=== PATIENT | female | born 1930 | race Caucasian/White ===

== ENCOUNTER 2019-03-24 20:42 | Emergency (ER) | payer MEDICARE, OTHER | END 2019-03-25 02:15 | disposition short-term general hospital (02) | LOC: ER FS 20:42 ==

== ENCOUNTER → 2020-11-05 | Outpatient (CLI) | payer MEDICARE, MEDICAID ==
--- NOTE | 2020-11-05 14:10 | Diagnostic Imaging Report ---
PROCEDURE: CT head without contrast. TECHNIQUE: Multiple contiguous axial images were obtained through the brain without the use of intravenous contrast. Auto Exposure Controls were utilized during the CT exam to meet ALARA standards for radiation dose reduction. INDICATION: Fall. COMPARISON: Correlation is made with prior CT head from 03/24/2019. FINDINGS: The ventricles and sulci are prominent consistent with the patient's age. There is periventricular hypodensity noted consistent with senescent change. No sulcal effacement or midline shift is identified. No acute intra-axial or extra-axial hemorrhage is detected. Cisterns are patent. Visualized paranasal sinuses are clear. IMPRESSION: Chronic and senescent changes. No acute intracranial process is detected. Dictated by: Dictated on workstation # [id number]
== END ==
LOC: RAD FS 13:08
PROVIDERS: ATTEND Family Medicine
DX: B02.9 Zoster without complications (principal); G31.9 Degenerative disease of nervous system, unspecified; W19.XXXA Unspecified fall, initial encounter
CPT/HCPCS: 70450

== ENCOUNTER 2022-09-12 09:56 | Emergency (ER) | payer MEDICARE, MEDICAID ==
--- NOTE | 2022-09-12 10:08 | ED General ---
General Chief Complaint: Respiratory Problems Stated Complaint: SOB; FLU A+ History of Present Illness Date Seen by Provider: Sep 12, 2022 Time Seen by Provider: 10:08 Initial Comments 89-year-old female with PMH of HTN/HLD/anxiety/possible A. fib, is here with complaints of influenza A positive with symptoms since Thursday evening, and becoming dyspneic with a productive cough, fatigue, and wheezing at home. Patient does not have any history of asthma or COPD. Denies abdominal pain, diarrhea, constipation, chest pain, palpitations. Patient is breathless after speaking a few sentences. Vitals in the ER are stable. Allergies and Home Medications Allergies Coded Allergies: shrimp (Verified Allergy, Unknown, 09/12/22) Uncoded Allergies: IVP DYE (Allergy, Unknown, 09/12/22) Patient Home Medication List Home Medication List Reviewed: Yes Review of Systems Review of Systems Constitutional: fever, malaise EENTM: nose congestion Respiratory: cough, dyspnea on exertion, wheezing Cardiovascular: no symptoms reported Gastrointestinal: no symptoms reported Genitourinary: no symptoms reported Musculoskeletal: no symptoms reported Skin: no symptoms reported Psychiatric/Neurological: No Symptoms Reported Hematologic/Lymphatic: No Symptoms Reported Immunological/Allergic: no symptoms reported Past Opbdvwm-Usvfwk-Qogfvo Hx Seasonal Allergies Seasonal Allergies: No Past Medical History Surgeries: No Respiratory: No Cardiac: No Neurological: No Genitourinary: No Gastrointestinal: No Musculoskeletal: No Endocrine: No HEENT: No Cancer: No Psychosocial: No Integumentary: No Blood Disorders: No Adverse Reaction/Blood Tranf: No Physical Exam Vital Signs Vital Signs - First Documented 09/12/22 10:00 Temp 36.8 Pulse 77 Resp 20 B/P (MAP) 174/60 (98) Pulse Ox 94 O2 Delivery Room Air Capillary Refill : Height, Weight, BMI Height: 4'10.00" Weight: 130lbs. oz. 58.657513kw; BMI Method:Stated General Appearance: Mild Distress HEENT: PERRL/EOMI, Pharynx Normal Neck: Full Range of Motion, Non Tender Respiratory: Chest Non Tender, No Accessory Muscle Use, Rhonci, Wheezing Cardiovascular: Regular Rate, Rhythm, No Edema Gastrointestinal: Normal Bowel Sounds, Non Tender, Soft Back: No CVA Tenderness Extremity: Normal Range of Motion Neurologic/Psychiatric: Alert, Oriented x3, No Motor/Sensory Deficits Focused Exam Lactate Level 12/2/22 10:58: Lactic Acid Level 1.46 Lactic Acid Level Laboratory Tests Test 09/12/22 10:58 Lactic Acid Level 1.46 MMOL/L (0.50-2.00) Progress/Results/Core Measures Suspected Sepsis SIRS Temperature: Pulse: Respiratory Rate: Laboratory Tests 09/12/22 10:40: White Blood Count 10.3 Blood Pressure / Mean: 09/12/22 10:58: Lactic Acid Level 1.46 Laboratory Tests 09/12/22 10:40: Creatinine 0.76, INR Comment 0.9, Platelet Count 267, Total Bilirubin 0.2 Results/Orders Lab Results Laboratory Tests Test 09/12/22 10:40 09/12/22 10:58 09/12/22 12:15 09/12/22 13:50 Range/Units White Blood Count 10.3 4.3-11.0 10^3/uL Red Blood Count 4.29 3.80-5.11 10^6/uL Hemoglobin 12.5 11.5-16.0 g/dL Hematocrit 38 35-52 % Mean Corpuscular Volume 89 80-99 fL Mean Corpuscular Hemoglobin 29 25-34 pg Mean Corpuscular Hemoglobin Concent 33 32-36 g/dL Red Cell Distribution Width 13.7 10.0-14.5 % Platelet Count 267 130-400 10^3/uL Mean Platelet Volume 9.4 9.0-12.2 fL Immature Granulocyte % (Auto) 1 % Neutrophils (%) (Auto) 67 42-75 % Lymphocytes (%) (Auto) 18 12-44 % Monocytes (%) (Auto) 10 0-12 % Eosinophils (%) (Auto) 3 0-10 % Basophils (%) (Auto) 1 0-10 % Neutrophils # (Auto) 6.9 1.8-7.8 10^3/uL Lymphocytes # (Auto) 1.9 1.0-4.0 10^3/uL Monocytes # (Auto) 1.1 H 0.0-1.0 10^3/uL Eosinophils # (Auto) 0.4 H 0.0-0.3 10^3/uL Basophils # (Auto) 0.1 0.0-0.1 10^3/uL Immature Granulocyte # (Auto) 0.1 0.0-0.1 10^3/uL Prothrombin Time 12.7 12.2-14.7 SEC INR Comment 0.9 0.8-1.4 Activated Partial Thromboplast Time 30 24-35 SEC D-Dimer 1.35 H 0.00-0.49 UG/ML Sodium Level 139 135-145 MMOL/L Potassium Level 4.7 3.6-5.0 MMOL/L Chloride Level 106 98-107 MMOL/L Carbon Dioxide Level 25 21-32 MMOL/L Anion Gap 8 5-14 MMOL/L Blood Urea Nitrogen 9 7-18 MG/DL Creatinine 0.76 0.60-1.30 MG/DL Estimat Glomerular Filtration Rate 75 BUN/Creatinine Ratio 12 Glucose Level 115 H 70-105 MG/DL Calcium Level 9.5 8.5-10.1 MG/DL Corrected Calcium 10.1 8.5-10.1 MG/DL Magnesium Level 1.8 1.6-2.4 MG/DL Total Bilirubin 0.2 0.1-1.0 MG/DL Aspartate Amino Transf (AST/SGOT) 37 H 5-34 U/L Alanine Aminotransferase (ALT/SGPT) 27 0-55 U/L Alkaline Phosphatase 82 40-136 U/L Troponin I < 0.30 <0.30 NG/ML Pro-B-Type Natriuretic Peptide 880.0 H <450.0 PG/ML Total Protein 6.5 6.4-8.2 GM/DL Albumin 3.2 3.2-4.5 GM/DL Procalcitonin 0.10 H <0.10 NG/ML Lactic Acid Level 1.46 0.50-2.00 MMOL/L Urine Color YELLOW Urine Clarity CLOUDY Urine pH 7.5 5-9 Urine Specific [place] 1.010 L 1.016-1.022 Urine Protein NEGATIVE NEGATIVE Urine Glucose (UA) NEGATIVE NEGATIVE Urine Ketones NEGATIVE NEGATIVE Urine Nitrite NEGATIVE NEGATIVE Urine Bilirubin NEGATIVE NEGATIVE Urine Urobilinogen 0.2 < = 1.0 MG/DL Urine Leukocyte Esterase 3+ H NEGATIVE Urine RBC (Auto) 1+ H NEGATIVE Urine RBC 5-10 H /HPF Urine WBC 25-50 H /HPF Urine Squamous Epithelial Cells 10-25 H /HPF Urine Crystals NONE /LPF Urine Bacteria LARGE H /HPF Urine Casts NONE /LPF Urine Mucus SMALL H /LPF Urine Culture Indicated YES SARS-CoV-2 RNA (RT-PCR) Not Detected Not Detecte My Orders Orders - TMI ROBERTS MD Albuterol/Ipra Inhalation Soln (Duoneb I (09/12/22 10:45) Svn Small Volume Nebulizer (09/12/22 10:31) Irrigation And Suction (09/12/22 10:31) Cbc With Automated Diff (09/12/22 10:31) Comprehensive Metabolic Panel (09/12/22 10:31) Fibrin Degradation Products (09/12/22 10:31) Lactic Acid Analyzer (09/12/22 10:31) Magnesium (09/12/22 10:31) Protime With Inr (09/12/22 10:31) Partial Thromboplastin Time (09/12/22 10:31) Ua Culture If Indicated (09/12/22 10:31) Probnp Fs (09/12/22 10:31) Troponin I Fs (09/12/22 10:31) Procalcitonin (Pct) (09/12/22 10:31) Chest 1 View Ap/Pa Only (09/12/22 10:31) Ekg Tracing (09/12/22 10:32) Continuous Ekg Monitoring (09/12/22 10:32) Hypertonic Saline 3% Neb (Rt-Hypertonic (09/12/22 10:59) Sodium Chl Inhalation (Rt-Sodium Chl Inh (09/12/22 11:51) Albuterol/Ipra Inhalation Soln (Duoneb I (09/12/22 12:49) Albuterol/Ipra Inhalation Soln (Duoneb I (09/12/22 13:00) Svn Small Volume Nebulizer (09/12/22 12:52) Sodium Chl Inhalation (Rt-Sodium Chl Inh (09/12/22 13:00) Svn Small Volume Nebulizer (09/12/22 12:56) Urine Culture (09/12/22 12:15) Covid 19 Inhouse Test (09/12/22 13:29) Ceftriaxone 1 Gm Pre-Mix (Rocephin 1 Gm (09/12/22 16:11) Medications Given in ED Current Medications Medications Dose Ordered Sig/Emerita Route Start Time Stop Time Status Last Admin Dose Admin Albuterol/ Ipratropium 3 ml ONCE ONCE INH 09/12/22 10:45 09/12/22 10:46 DC 09/12/22 10:54 3 ML Albuterol/ Ipratropium 3 ml ONCE ONCE INH 09/12/22 13:00 09/12/22 13:01 DC 09/12/22 12:55 3 ML Sodium Chloride 3 ml ONCE ONCE IH 09/12/22 13:00 09/12/22 13:01 DC 09/12/22 16:37 3 ML Vital Signs/I&O 09/12/22 10:00 Temp 36.8 Pulse 77 Resp 20 B/P (MAP) 174/60 (98) Pulse Ox 94 O2 Delivery Room Air Capillary Refill : Progress Note : Progress Note 1. INFLUENZA A: acute dyspnea: - CXR: no acute findings - CBC: Normal WBC - CMP overall unremarkable - UA -Hypertonic saline neb and suction in ER -DuoNeb x2 - Will benefit from admission to obs, suctioning. Called multiple hospitals for admission and no one has beds including [facility]. We will transfer patient to [facility] in [facility]. Discussed with Dr. Ratliff, hospitalist 2. ELEVATED D-DIMER: - D-dimer is 1.35 - Pt is allergic to contrast - will need VQ scan at [place] 3. UTI: - UA is positive for leukocyte esterase, RBC, bacteria, WBC -Ceftriaxone 1 g IV stat - NS IVF Diagnostic Imaging Diagonstic Imaging: Xray Plain Films/CT/US/NM/MRI: chest Comments [facility], [facility]. [place], [place] NAME: GREG WILKINSON [facility] REC#: [id number] PT STATUS: REG ER : 1930 PHYSICIAN: TIM ROBERTS MD ADMIT DATE: 09/12/22/ER FS Draft Date of Exam:09/12/22 CHEST 1 VIEW AP/PA ONLY INDICATION: Shortness of breath. Frontal chest obtained at 10:36 a.m. FINDINGS: Heart and mediastinal silhouette are normal in appearance. The lungs are clear. There is no pneumothorax or pleural fluid. IMPRESSION: Negative chest. Dictated on workstation # [id number] Dict: 09/12/22 1053 Trans: 09/12/22 1055 [id number] Interpreted by: CHE LEHMAN MD Electronically signed by: Departure Impression Primary Impression: Influenza A Additional Impressions: Elevated d-dimer UTI (urinary tract infection) Disposition: 02 XFER SHT-TRM HOSP Condition: Improved Admissions Decision to Admit Reason: Admit from ER (General) Transfer Transfer Reason: Exceeds level of care Time Spoke to Accepting Phy: 14:36 Transfer Progress Notes Discussed with Transfer Facility: [facility] Method of Transfer: EMS Departure-Patient Inst. Referrals: SELF,ALVIN SALCEDO (PCP) Primary Care Physician TIM ROBERTS MD Sep 12, 2022 10:08
[2022-09-12 10:43] LABS: BASOPHILS # (AUTO) 0.1 10^3/uL (0.0-0.1); BASOPHILS % (AUTO) 1 % (0-10); EOSINOPHILS # (AUTO) 0.4 10^3/uL (0.0-0.3); EOSINOPHILS % (AUTO) 3 % (0-10); HEMATOCRIT 38 % (35-52); HEMOGLOBIN 12.5 g/dL (11.5-16.0); LYMPHOCYTES # (AUTO) 1.9 10^3/uL (1.0-4.0); LYMPHOCYTES % (AUTO) 18 % (12-44); MEAN CORPUSCULAR HEMOGLOBIN 29 pg (25-34); MEAN CORPUSCULAR HGB CONC 33 g/dL (32-36); MEAN CORPUSCULAR VOLUME 89 fL (80-99); MEAN PLATELET VOLUME 9.4 fL (9.0-12.2); MONOCYTES # (AUTO) 1.1 10^3/uL (0.0-1.0); MONOCYTES % (AUTO) 10 % (0-12); NEUTROPHILS # (AUTO) 6.9 10^3/uL (1.8-7.8); NEUTROPHILS % (AUTO) 67 % (42-75); PLATELET COUNT 267 10^3/uL (130-400); WHITE BLOOD COUNT 10.3 10^3/uL (4.3-11.0)
[2022-09-12] MEDS ORDERED: RT-ALBUTEROL/IPRATROPIUM 3 ML (DUONEB) VIAL INH ONE ×2 (10:45→13:00)
--- NOTE | 2022-09-12 10:56 | Diagnostic Imaging Report ---
INDICATION: Shortness of breath. Frontal chest obtained at 10:36 a.m. FINDINGS: Heart and mediastinal silhouette are normal in appearance. The lungs are clear. There is no pneumothorax or pleural fluid. IMPRESSION: Negative chest. Dictated by: Dictated on workstation # [id number]
[2022-09-12] MEDS ORDERED: RT-HYPERTONIC SALINE 3% 4 ML NEB INH STA (10:59)
[2022-09-12 11:27] LABS: ALANINE AMINOTRANSFERASE 27 U/L (0-55); ALBUMIN 3.2 GM/DL (3.2-4.5); ALKALINE PHOSPHATASE 82 U/L (40-136); BILIRUBIN,TOTAL 0.2 MG/DL (0.1-1.0); BUN/CREATININE RATIO 12; CALCIUM 9.5 MG/DL (8.5-10.1); CARBON DIOXIDE 25 MMOL/L (21-32); CREATININE SERUM 0.76 MG/DL (0.60-1.30); GFR ESTIMATED 75; GLUCOSE 115 MG/DL (70-105); MAGNESIUM 1.8 MG/DL (1.6-2.4); TOTAL PROTEIN 6.5 GM/DL (6.4-8.2)
[2022-09-12 11:35] LABS: CHLORIDE 106 MMOL/L (98-107); FIBRIN DEGRADATION PRODUCTS 1.35 UG/ML (0.00-0.49); INR 0.9 (0.8-1.4); POTASSIUM 4.7 MMOL/L (3.6-5.0); PROTHROMBIN TIME PATIENT 12.7 SEC (12.2-14.7); SODIUM 139 MMOL/L (135-145)
[2022-09-12] MEDS ORDERED: RT-SODIUM CHL INHALATION 3 ML VIAL ONE (11:51)
[2022-09-12] MEDS ORDERED: HOLD METFORMIN - RECEIVED CONTRAST 20 ML VIAL IV SCH (12:00)
[2022-09-12] MEDS ORDERED: NS 100 ML (IVPB) BAG IV ONE (12:00)
[2022-09-12] MEDS ORDERED: IOHEXOL 350 MG/ML 100 ML (OMNIPAQUE 350) VIAL IV ONE (12:00)
[2022-09-12 12:30] LABS: BILIRUBIN,URINE NEGATIVE (NEGATIVE); CLARITY,URINE CLOUDY; COLOR,URINE YELLOW; GLUCOSE, URINE (UA) NEGATIVE (NEGATIVE); KETONES,URINE NEGATIVE (NEGATIVE); LEUKOCYTE ESTERASE ,URINE 3+ (NEGATIVE); NITRITE,URINE NEGATIVE (NEGATIVE); PH,URINE 7.5 (5-9); PROTEIN,URINE NEGATIVE (NEGATIVE)
[2022-09-12] MEDS ORDERED: RT-ALBUTEROL/IPRATROPIUM 3 ML (DUONEB) VIAL ONE (12:49)
[2022-09-12] MEDS ORDERED: RT-SODIUM CHL INHALATION 3 ML VIAL IH ONE (13:00)
[2022-09-12 13:26] LABS: BACTERIA,URINE LARGE /HPF; WBC,URINE 25-50 /HPF
[2022-09-12] MEDS ORDERED: cefTRIAXone 1 GM PRE-MIX 50 ML IV STA (16:11)
[2022-09-12 21:17] VITALS: BP 160/37
== END 2022-09-12 21:24 | disposition short-term general hospital (02) ==
LOC: EDUNIT# 09:56 → ER FS 09:58
DX: J10.1 Influenza due to other identified influenza virus with other respiratory manifestations (principal); N39.0 Urinary tract infection, site not specified; R79.1 Abnormal coagulation profile; Z20.822 Contact with and (suspected) exposure to COVID-19
CPT/HCPCS: 36415; 71045; 80053; 81000; 83605; 83735; 83880; 84145; 84484; 85025; 85379; 85610; 85730; 87077; 87088; 87186; 87636; 93005; 94640

== ENCOUNTER 2022-09-15 10:56 | Inpatient (IN) | payer MEDICARE, MEDICAID ==
[~2022-09-15] VITALS: Ht 150 cm; Wt 63.1 kg
[2022-09-15 11:52] LABS: BASOPHILS # (AUTO) 0.1 10^3/uL (0.0-0.1); BASOPHILS % (AUTO) 1 % (0-10); EOSINOPHILS # (AUTO) 0.6 10^3/uL (0.0-0.3); EOSINOPHILS % (AUTO) 4 % (0-10); HEMATOCRIT 41 % (35-52); HEMOGLOBIN 13.2 g/dL (11.5-16.0); LYMPHOCYTES # (AUTO) 1.8 10^3/uL (1.0-4.0); LYMPHOCYTES % (AUTO) 13 % (12-44); MEAN CORPUSCULAR HEMOGLOBIN 30 pg (25-34); MEAN CORPUSCULAR HGB CONC 32 g/dL (32-36); MEAN CORPUSCULAR VOLUME 92 fL (80-99); MEAN PLATELET VOLUME 9.3 fL (9.0-12.2); MONOCYTES # (AUTO) 1.4 10^3/uL (0.0-1.0); MONOCYTES % (AUTO) 10 % (0-12); NEUTROPHILS # (AUTO) 9.9 10^3/uL (1.8-7.8); NEUTROPHILS % (AUTO) 72 % (42-75); PLATELET COUNT 367 10^3/uL (130-400); WHITE BLOOD COUNT 13.8 10^3/uL (4.3-11.0)
[2022-09-15 12:09] LABS: ALBUMIN 3.3 GM/DL (3.2-4.5); BILIRUBIN,TOTAL 0.3 MG/DL (0.1-1.0); CALCIUM 10.2 MG/DL (8.5-10.1); CREATININE SERUM 0.81 MG/DL (0.60-1.30); POTASSIUM 4.7 MMOL/L (3.6-5.0); TOTAL PROTEIN 6.7 GM/DL (6.4-8.2)
[2022-09-15 12:11] LABS: INR 0.9 (0.8-1.4); PROTHROMBIN TIME PATIENT 13.1 SEC (12.2-14.7)
[2022-09-15 12:15] LABS: BILIRUBIN,URINE NEGATIVE (NEGATIVE); CLARITY,URINE CLEAR; COLOR,URINE YELLOW; GLUCOSE, URINE (UA) NEGATIVE (NEGATIVE); KETONES,URINE NEGATIVE (NEGATIVE); LEUKOCYTE ESTERASE ,URINE 3+ (NEGATIVE); NITRITE,URINE NEGATIVE (NEGATIVE); PH,URINE 7.5 (5-9); PROTEIN,URINE TRACE (NEGATIVE)
[2022-09-15 12:33] LABS: AMORPHOUS SEDIMENT,UR RARE AMOR PHOSPHATE /LPF; BACTERIA,URINE FEW /HPF; CALCIUM OXALATE CRYSTALS,UR RARE /LPF; WBC,URINE 50-100 /HPF
--- NOTE | 2022-09-15 12:35 | ED GU-Female ---
General Chief Complaint: - Reproductive Stated Complaint: UTI Nursing Triage Note: WAS SEEN IN THE ER IN ON THURSDAY FOR UTI. WAS CALLED YESTERDAY AND TOLD SHE NEEDED IV ABX AND TO CALL HER DR. THIS AM TOLD HER TO COME TO THE ER IN [facility]. RECENT HOSPITALIZATION IN [place] FOR THE FLU. Source: patient Exam Limitations: no limitations History of Present Illness Date Seen by Provider: Sep 15, 2022 Time Seen by Provider: 12:35 Initial Comments 89-year-old female to ER with reports of UTI, resistant to most medications except for gentamicin and meropenem. On 09/08/2022 she was diagnosed with influenza at [facility]. She then got progressively more short of breath with a productive cough and was taken to the emergency room at [place]. She was transferred from there to [facility],, she was found to have a urinary tract infection 10-25 white cells at [place]. This culture is available. This shows Morganella morganii with sensitivity to gentamicin and meropenem. Daughter notices persistent confusion and urinary incontinence. Timing/Duration: constant Severity/Quality: moderate Location: unknown Radiation: none Activities at Onset: none Prior Genitourinary Problems: none Associated Symptoms: denies symptoms Allergies and Home Medications Allergies Coded Allergies: shrimp (Verified Allergy, Unknown, 09/12/22) Uncoded Allergies: IVP DYE (Allergy, Unknown, 09/12/22) Patient Home Medication List Home Medication List Reviewed: Yes Review of Systems Review of Systems Constitutional: see HPI; No chills, No fever EENTM: see HPI Respiratory: no symptoms reported Cardiovascular: no symptoms reported Genitourinary: denies burning, denies dysuria Musculoskeletal: no symptoms reported Skin: no symptoms reported Psychiatric/Neurological: No Symptoms Reported Endocrine: No Symptoms Reported Hematologic/Lymphatic: No Symptoms Reported Past Hojpyop-Dcpaey-Qhjoos Hx Patient Social History Tobacco Use?: No Substance use?: No Alcohol Use?: No Immunizations Up To Date First/Initial COVID19 Vaccinat: Yes Second COVID19 Vaccination [place]: UNKNOWN COVID19 Vaccine Tentering Machine Feeder: UNKNOWN Seasonal Allergies Seasonal Allergies: No Past Medical History Surgery/Hospitalization HX: HTN; High Cholesterol; Anxiety Surgeries: No Respiratory: No Cardiac: No Neurological: No Genitourinary: No Gastrointestinal: No Musculoskeletal: No Endocrine: No HEENT: No Cancer: No Psychosocial: No Integumentary: No Blood Disorders: No Adverse Reaction/Blood Tranf: No Physical Exam Vital Signs Vital Signs - First Documented 09/15/22 11:27 Temp 36.9 Pulse 71 Resp 16 B/P (MAP) 139/77 (97) Pulse Ox 95 O2 Delivery Room Air Capillary Refill : Less Than 3 Seconds Height, Weight, BMI Height: 4'10.00" Weight: 130lbs. oz. 58.331490qa; 27.00 BMI Method:Stated General Appearance: WD/WN, no apparent distress HEENT: PERRL/EOMI, normal ENT inspection Neck: non-tender, full range of motion Respiratory: lungs clear, normal breath sounds, no respiratory distress, no accessory muscle use Gastrointestinal: normal bowel sounds, non tender Extremities: normal range of motion, non-tender Neurologic/Psychiatric: alert, normal mood/affect, oriented x 3 Skin: normal color, warm/dry Progress/Results/Core Measures Suspected Sepsis SIRS Temperature: Pulse: 71 Respiratory Rate: 16 Laboratory Tests 09/15/22 11:45: White Blood Count 13.8H Blood Pressure 139 /77 Mean: 97 Laboratory Tests 09/15/22 11:45: Creatinine 0.81, Platelet Count 367, Total Bilirubin 0.3 09/15/22 11:56: INR Comment 0.9 Results/Orders Lab Results Laboratory Tests Test 09/15/22 11:45 09/15/22 11:56 09/15/22 12:06 Range/Units White Blood Count 13.8 H 4.3-11.0 10^3/uL Red Blood Count 4.45 3.80-5.11 10^6/uL Hemoglobin 13.2 11.5-16.0 g/dL Hematocrit 41 35-52 % Mean Corpuscular Volume 92 80-99 fL Mean Corpuscular Hemoglobin 30 25-34 pg Mean Corpuscular Hemoglobin Concent 32 32-36 g/dL Red Cell Distribution Width 13.5 10.0-14.5 % Platelet Count 367 130-400 10^3/uL Mean Platelet Volume 9.3 9.0-12.2 fL Immature Granulocyte % (Auto) 1 % Neutrophils (%) (Auto) 72 42-75 % Lymphocytes (%) (Auto) 13 12-44 % Monocytes (%) (Auto) 10 0-12 % Eosinophils (%) (Auto) 4 0-10 % Basophils (%) (Auto) 1 0-10 % Neutrophils # (Auto) 9.9 H 1.8-7.8 10^3/uL Lymphocytes # (Auto) 1.8 1.0-4.0 10^3/uL Monocytes # (Auto) 1.4 H 0.0-1.0 10^3/uL Eosinophils # (Auto) 0.6 H 0.0-0.3 10^3/uL Basophils # (Auto) 0.1 0.0-0.1 10^3/uL Immature Granulocyte # (Auto) 0.1 0.0-0.1 10^3/uL Sodium Level 137 135-145 MMOL/L Potassium Level 4.7 3.6-5.0 MMOL/L Chloride Level 105 98-107 MMOL/L Carbon Dioxide Level 24 21-32 MMOL/L Anion Gap 8 5-14 MMOL/L Blood Urea Nitrogen 17 7-18 MG/DL Creatinine 0.81 0.60-1.30 MG/DL Estimat Glomerular Filtration Rate 69 BUN/Creatinine Ratio 21 Glucose Level 121 H 70-105 MG/DL Calcium Level 10.2 H 8.5-10.1 MG/DL Corrected Calcium 10.8 H 8.5-10.1 MG/DL Total Bilirubin 0.3 0.1-1.0 MG/DL Aspartate Amino Transf (AST/SGOT) 27 5-34 U/L Alanine Aminotransferase (ALT/SGPT) 30 0-55 U/L Alkaline Phosphatase 73 40-136 U/L Total Protein 6.7 6.4-8.2 GM/DL Albumin 3.3 3.2-4.5 GM/DL Prothrombin Time 13.1 12.2-14.7 SEC INR Comment 0.9 0.8-1.4 Urine Color YELLOW Urine Clarity CLEAR Urine pH 7.5 5-9 Urine Specific [place] 1.015 L 1.016-1.022 Urine Protein TRACE H NEGATIVE Urine Glucose (UA) NEGATIVE NEGATIVE Urine Ketones NEGATIVE NEGATIVE Urine Nitrite NEGATIVE NEGATIVE Urine Bilirubin NEGATIVE NEGATIVE Urine Urobilinogen 0.2 < = 1.0 MG/DL Urine Leukocyte Esterase 3+ H NEGATIVE Urine RBC (Auto) TRACE-I H NEGATIVE Urine RBC 5-10 H /HPF Urine WBC 50-100 H /HPF Urine Squamous Epithelial Cells 2-5 /HPF Urine Crystals PRESENT H /LPF Urine Calcium Oxalate Crystals RARE H /LPF Urine Amorphous Sediment RARE MARY PHOSPHATE H /LPF Urine Bacteria FEW H /HPF Urine Casts NONE /LPF Urine Mucus SMALL H /LPF Urine Culture Indicated YES My Orders Orders - AYDEN SLAUGHTER APRN Cbc With Automated Diff (09/15/22 11:32) Comprehensive Metabolic Panel (09/15/22 11:32) Protime With Inr (09/15/22 11:32) Ua Culture If Indicated (09/15/22 11:32) Ed Iv/Invasive Line Start (09/15/22 11:32) Chest 1 View, Ap/Pa Only (09/15/22 12:34) Urine Culture (09/15/22 12:06) Vital Signs/I&O 09/15/22 11:27 Temp 36.9 Pulse 71 Resp 16 B/P (MAP) 139/77 (97) Pulse Ox 95 O2 Delivery Room Air Capillary Refill : Less Than 3 Seconds Blood Pressure Mean: 97 Departure Communication (Admissions) 1255-spoke with Dr. Foss, will admit for IV meropenem. Patient and daughter agree with DO NOT RESUSCITATE status. Impression Primary Impression: Urinary tract infection Disposition: ADMITTED INPATIENT Condition: Stable Admissions Decision to Admit Reason: Admit from ER (General) Decision to Admit/Date: Sep 15, 2022 Time/Decision to Admit Time: 12:52 Departure-Patient Inst. Referrals: SELF,ALVIN SALCEDO (PCP/Family) Primary Care Physician AYDEN SLAUGHTER APRN Sep 15, 2022 12:35
--- NOTE | 2022-09-15 13:23 | Diagnostic Imaging Report ---
INDICATION: Cough. Frontal chest obtained at 12:50 p.m. and compared to 09/12/2022. FINDINGS: The heart is mildly enlarged. Aorta is tortuous and/or ectatic. There is no focal infiltrate or pneumothorax or pleural fluid. IMPRESSION: Negative chest. Dictated by: Dictated on workstation # [id number]
[2022-09-15] MEDS ORDERED: ONDANSETRON 4 MG/2 ML (SDV) Z0FRAN IV PRN (14:00)
[2022-09-15] MEDS ORDERED: CATHETER FLUSH 10 ML SYR IVP PRN (14:00)
[2022-09-15] MEDS: MEROPENEM 500 MG/NS 100 ML IVPB IV SCH ×4 (14:22→22:20)
[2022-09-15] MEDS: ENOXAPARIN 40 MG/0.4 ML (LOVENOX) SYR SC SCH (14:23)
[2022-09-15] MEDS: CATHETER FLUSH 10 ML SYR IVP SCH ×2 (14:23→22:20)
[2022-09-15 14:38] LABS: BASOPHILS # (AUTO) 0.1 10^3/uL (0.0-0.1); BASOPHILS % (AUTO) 0 % (0-10); EOSINOPHILS # (AUTO) 0.7 10^3/uL (0.0-0.3); EOSINOPHILS % (AUTO) 5 % (0-10); HEMATOCRIT 39 % (35-52); HEMOGLOBIN 12.5 g/dL (11.5-16.0); LYMPHOCYTES # (AUTO) 2.3 10^3/uL (1.0-4.0); LYMPHOCYTES % (AUTO) 17 % (12-44); MEAN CORPUSCULAR HEMOGLOBIN 29 pg (25-34); MEAN CORPUSCULAR HGB CONC 32 g/dL (32-36); MEAN CORPUSCULAR VOLUME 91 fL (80-99); MEAN PLATELET VOLUME 9.3 fL (9.0-12.2); MONOCYTES # (AUTO) 1.2 10^3/uL (0.0-1.0); MONOCYTES % (AUTO) 9 % (0-12); NEUTROPHILS % (AUTO) 68 % (42-75); PLATELET COUNT 354 10^3/uL (130-400); WHITE BLOOD COUNT 13.2 10^3/uL (4.3-11.0)
--- NOTE | 2022-09-15 14:43 | History & Physical ---
BAILEE CONNELLY 09/15/22 1443: HPI History of Present Illness: Macy Phillips is an 89 y/o female who presented to the ER today due to confusion and incontinence. Patient was diagnosed with influenza and a UTI seven days ago. She was started on antibiotics at that time for the UTI, which did not seem to help. She was then admitted to a hospital in [facility] overnight where they told her her urine was still infected. Patient then presented to the ED in [place], [place] and was told that her urine was still infected, culture and sensitivities were done at that time. Patient denies any respiratory symptoms. Her daughter states she has been confused and had incontinence but otherwise denies urinary symptoms. Source: patient, family (daughter) Exam Limitations: no limitations, other (Patient with slight confusion, daughter present to verify information) Date seen by provider: Sep 15, 2022 Time Seen by Provider: 13:00 Attending Physician Franck Medina MD PCP Admitting Physician: Dale Portillo MD Attending Physician: Dale Portillo MD Consult Date of Admission Sep 15, 2022 at 12:52 Home Medications Home Medications Reviewed patient Home Medication Reconciliation performed by pharmacy medication reconciliations copier field service technician and/or nursing. Patients Allergies have been reviewed. Allergies Coded Allergies: shrimp (Verified Allergy, Unknown, 09/12/22) Uncoded Allergies: IVP DYE (Allergy, Unknown, 09/12/22) WVM-Xomnju-Tlagij Hx Patient Social History Number of Children: 6 Living Status: Living alone, daughter lives next door and checks on her regularly Employed/Student: retired Smoking Status: Never a Smoker 2nd Hand Smoke Exposure: No Recent Hopitalizations: Yes Alcohol Use?: No Have you traveled recently?: No Immunizations Up To Date Tetanus Booster (TDap): Unknown Influenza Vaccine Up-to-Date: No; Not Current First/Initial COVID19 Vaccinat: Yes Second COVID19 Vaccination [place]: 06/14/2021 Third COVID19 Vaccination Date: 08/27/2022 COVID19 Vaccine Violin Restorer: Beronica Past Medical History Generalized anxiety disorder, HLD, Essential hypertension, impaired hearing, prediabetes, ostoporosis, systolic murmur of aorta, basal cell carcinoma of skin of nose Family Medical History Significant Family History: Heart Disease, Cancer, COPD, Other Conditions/Hx (kidney transplant - son) Review of Systems ([facility]) Constitutional: no symptoms reported; No chills, No dizziness, No fever Respiratory: no symptoms reported; No cough, No dyspnea on exertion, No short of breath Cardiovascular: no symptoms reported Gastrointestinal: no symptoms reported Genitourinary: No dysuria; incontinence; No pain : No Musculoskeletal: No back pain Psychiatric/Neurological: Other (confusion) Reviewed Test Results Reviewed Test Results Lab Laboratory Tests 09/15/22 11:45: White Blood Count 13.8H, Neutrophils # (Auto) 9.9H, Monocytes # (Auto) 1.4H, Eosinophils # (Auto) 0.6H, Glucose Level 121H, Calcium Level 10.2H, Corrected Calcium 10.8H 09/15/22 11:56: 09/15/22 12:06: Urine Specific [place] 1.015L, Urine Protein TRACEH, Urine Leukocyte Esterase 3+H, Urine RBC (Auto) TRACE-IH, Urine RBC 5-10H, Urine WBC 50-100H, Urine Crystals PRESENTH, Urine Calcium Oxalate Crystals RAREH, Urine Amorphous Sediment RARE MARY PHOSPHATEH, Urine Bacteria FEWH, Urine Mucus SMALLH 09/15/22 14:31: White Blood Count 13.2H, Neutrophils # (Auto) 9.0H, Monocytes # (Auto) 1.2H, Eosinophils # (Auto) 0.7H Radiology Chest x-ray: negative chest. No infiltrate, pleural fluid. Heart mildly enlarg ed. Tortuous aorta. Physical Exam-([facility]) Physical Exam Vital Signs VS - Last 72 Hours, by Label 09/15/22 09/15/22 11:27 13:37 Temp 36.9 36.9 Pulse 71 71 Resp 16 16 B/P (MAP) 139/77 (97) 139/77 Pulse Ox 95 95 O2 Delivery Room Air Room Air Capillary Refill : Less Than 3 Seconds General Appearance: no apparent distress Respiratory: no respiratory distress, no accessory muscle use, wheezing, other (coarse lung sounds) Cardiovascular: regular rate, rhythm, no edema Gastrointestinal: normal bowel sounds, non tender, soft, no organomegaly, no pulsatile mass Extremities: normal inspection Neurologic/Psychiatric: change management specialist II-XII nml as tested, alert, oriented x 3, sensory deficit (sensation decreased on left lower leg, otherwise normal ) Skin: normal color, warm/dry Assessment/Plan Assessment/Plan Admission Status: Inpatient Order (span 2 midnights) Reason for Inpatient Admission: UTI requiring IV antibiotics, confusion (1) UTI (urinary tract infection) Status: Acute Assessment & Plan: Patient has been on antibiotics for the past 1 week for UTI. Cultures and sensitivity done growing Morganella morganii, sensitive only to Meropenem and gentamycin. Patient will be admitted inpatient and started on Meropenem. (2) Influenza A Status: Acute Assessment & Plan: Patient tested positive for influenza 7 days ago. Patient was started on zinc and Xofluza. Denies respiratory symptoms. O2 saturation 95 on room air. Coarse breath sounds and end expiratory wheezing heard on exam. (3) Hypertension Status: Chronic Assessment & Plan: At home, patient is on Cartia XT 120mg 1 tab daily, carvedilol 3.125mg bid, clonidine HCl 0.1mg bid for HTN. BP 139/77 on presentation. Qualifiers: Qualified Codes: I10 - Essential (primary) hypertension (4) Systolic murmur of aorta Status: Chronic Assessment & Plan: Unsure of date of last ECHO. Patient denies chest pain. (5) Generalized anxiety disorder Status: Chronic Assessment & Plan: Patient takes half of alprazolam 0.5 mg at home for anxiety. (6) Prediabetes Status: Chronic (7) Osteoporosis Status: Chronic Qualifiers: Qualified Codes: M81.0 - Age-related osteoporosis without current pathological fracture (8) Basal cell carcinoma of skin of nose (9) Hyperlipidemia Status: Chronic Assessment & Plan: Takes simvastatin 5mg 1 tab daily at home. Qualifiers: Qualified Codes: E78.5 - Hyperlipidemia, unspecified (10) Impaired hearing Status: Chronic Qualifiers: Qualified Codes: H91.90 - Unspecified hearing loss, unspecified ear DALE PORTILLO MD 09/15/222124: Home Medications Allergies Coded Allergies: shrimp (Verified Allergy, Unknown, 09/12/22) Uncoded Allergies: IVP DYE (Allergy, Unknown, 09/12/22) Supervisory-Addendum Brief Verification & Attestation Participated in pt care: history, MDM, physical Personally performed: exam, history, MDM, supervision of care Care discussed with: Medical Student Procedures: n/a I personally saw and examined patient and did my own history which confirmed the findings documented by the medical student. I directed the plan of care as documented. BAILEE CONNELLY Sep 15, 2022 14:43 DALE PORTILLO MD Sep 15, 2022 21:25
[2022-09-15 14:56] VITALS: BP 146/80
[2022-09-15 15:06] VITALS: BP 149/76
[2022-09-15 16:06] VITALS: BP 149/76
[2022-09-15] MEDS ORDERED: RT-ALBUTEROL SULF 2.5 MG/3 ML PRE-MIX VIAL INH PRN (16:15)
[2022-09-15 19:05] VITALS: BP 131/63
[2022-09-15 23:49] VITALS: BP 153/70
[2022-09-16] VITALS (7 sets, daily range): BP systolic 138–169; BP diastolic 72–80
[2022-09-16] MEDS: MEROPENEM 500 MG/NS 100 ML IVPB IV SCH ×6 (05:28→21:32)
[2022-09-16] MEDS: CATHETER FLUSH 10 ML SYR IVP SCH ×3 (05:28→21:33)
[2022-09-16 06:38] LABS: CREATININE SERUM 0.74 MG/DL (0.60-1.30)
--- NOTE | 2022-09-16 09:36 | Progress Note ---
CONNELLYBAILEE Erasmo 09/16/22 0936: Subjective Subjective/Events-last exam Patient states she is doing well this morning. She does state she has had a cough that is worse at night and would like to know if she can have something for it. She has been able to eat, drink, and use the restroom without issue. Patient's family says that would be closer if that is an option for outpatient antibiotic infusions after discharge. Culture done here grew out different bacteria than the culture done at [place]. Pending sensitivities. Review of Systems General: No Chills, No Fatigue, No Malaise; Appetite Pulmonary: No Dyspnea; Cough Cardiovascular: No: Chest Pain, Edema Gastrointestinal: No: Nausea, Vomiting, Abdominal Pain Genitourinary: No Dysuria Neurological: Confusion; No: Weakness, Change in speech Focused Exam Time of Focused Exam: 08:05 Respiratory: Normal Breath Sounds Cardiovascular: Other (distant heart sounds, murmur present) Skin: normal color, warm/dry Objective Exam Last Set of Vital Signs Vital Signs Date Time Temp Pulse Resp B/P (MAP) Pulse Ox O2 Delivery O2 Flow Rate FiO2 09/16/22 07:35 37.0 74 20 169/80 (109) 92 Room Air Capillary Refill : Less Than 3 Seconds I&O Intake and Output 09/16/22 00:00 Intake Total 240 ml Balance 240 ml Intake Oral 240 ml # Voids 1 # Bowel Movements 1 Daily Weight Change Yes, 2-13 lbs General: Alert, Cooperative Lungs: Clear to Auscultation, Normal Air Movement Heart: Regular Rate, Normal S1, Normal S2, Other (murmur present) Abdomen: Normal Bowel Sounds Skin: No Rashes, No Breakdown, No Significant Lesion Neuro: Normal Speech Psych/Mental Status: Other (A&O x3) Results/Procedures Lab Laboratory Tests 09/15/22 11:45: White Blood Count 13.8H, Red Blood Count 4.45, Hemoglobin 13.2, Hematocrit 41, Mean Corpuscular Volume 92, Mean Corpuscular Hemoglobin 30, Mean Corpuscular Hemoglobin Concent 32, Red Cell Distribution Width 13.5, Platelet Count 367, Mean Platelet Volume 9.3, Immature Granulocyte % (Auto) 1, Neutrophils (%) (Auto) 72, Lymphocytes (%) (Auto) 13, Monocytes (%) (Auto) 10, Eosinophils (%) (Auto) 4, Basophils (%) (Auto) 1, Neutrophils # (Auto) 9.9H, Lymphocytes # (Auto) 1.8, Monocytes # (Auto) 1.4H, Eosinophils # (Auto) 0.6H, Basophils # (Auto) 0.1, Immature Granulocyte # (Auto) 0.1, Sodium Level 137, Potassium Level 4.7, Chloride Level 105, Carbon Dioxide Level 24, Anion Gap 8, Blood Urea Nitrogen 17, Creatinine 0.81, Estimat Glomerular Filtration Rate 69, BUN/Creatinine Ratio 21, Glucose Level 121H, Calcium Level 10.2H, Corrected Calcium 10.8H, Total Bilirubin 0.3, Aspartate Amino Transf (AST/SGOT) 27, Alanine Aminotransferase (ALT/SGPT) 30, Alkaline Phosphatase 73, Total Protein 6.7, Albumin 3.3 09/15/22 11:56: Prothrombin Time 13.1, INR Comment 0.9 09/15/22 12:06: Urine Color YELLOW, Urine Clarity CLEAR, Urine pH 7.5, Urine Specific [place] 1.015L, Urine Protein TRACEH, Urine Glucose (UA) NEGATIVE, Urine Ketones NEGATIVE, Urine Nitrite NEGATIVE, Urine Bilirubin NEGATIVE, Urine Urobilinogen 0.2, Urine Leukocyte Esterase 3+H, Urine RBC (Auto) TRACE-IH, Urine RBC 5-10H, Urine WBC 50-100H, Urine Squamous Epithelial Cells 2-5, Urine Crystals PRESENTH, Urine Calcium Oxalate Crystals RAREH, Urine Amorphous Sediment RARE MARY PHOSPHATEH, Urine Bacteria FEWH, Urine Casts NONE, Urine Mucus SMALLH, Urine Culture Indicated YES 09/15/22 14:31: White Blood Count 13.2H, Red Blood Count 4.28, Hemoglobin 12.5, Hematocrit 39, Mean Corpuscular Volume 91, Mean Corpuscular Hemoglobin 29, Mean Corpuscular Hemoglobin Concent 32, Red Cell Distribution Width 13.5, Platelet Count 354, Mean Platelet Volume 9.3, Immature Granulocyte % (Auto) 0, Neutrophils (%) (Auto) 68, Lymphocytes (%) (Auto) 17, Monocytes (%) (Auto) 9, Eosinophils (%) (Auto) 5, Basophils (%) (Auto) 0, Neutrophils # (Auto) 9.0H, Lymphocytes # (Auto) 2.3, Monocytes # (Auto) 1.2H, Eosinophils # (Auto) 0.7H, Basophils # (Auto) 0.1, Immature Granulocyte # (Auto) 0.1 09/16/22 05:57: Sodium Level 137, Potassium Level 4.0, Chloride Level 105, Carbon Dioxide Level 22, Anion Gap 10, Blood Urea Nitrogen 16, Creatinine 0.74, Estimat Glomerular Filtration Rate 77, BUN/Creatinine Ratio 22, Glucose Level 96, Calcium Level 10.0 Microbiology 09/15/22 Urine Culture - Preliminary, Resulted Probable Pseudomonas Radiology Chest x-ray: negative chest. No infiltrate, pleural fluid. Heart mildly enlarged. Tortuous aorta. Assessment/Plan Assessment/Plan Admission Status: Inpatient Order (span 2 midnights) Assessment & Plan Diet: general DVT prophylaxis: Lovenox Code status: DNR Dispo: inpatient, pending sensitivities (1) UTI (urinary tract infection) Status: Acute Assessment & Plan: Patient has been on antibiotics for the past 1 week for UTI. Cultures and sensitivity done in [place] growing Morganella morganii, sensitive only to Meropenem and gentamycin. Cultures repeated here likely growing Pseudomonas. Sensitivities are pending. Patient is on Meropenem currently. Patient would like to go home as soon as possible, we are waiting on sensitivities. Once sensitivities are back will try to set up outpatient antibiotics. Patient has children who are involved and feel they can help her at home. She lives alone but one daughter lives next door and the other has stayed with her since she got sick. Qualifiers: Qualified Codes: N39.0 - Urinary tract infection, site not specified; R31.9 - Hematuria, unspecified (2) Influenza A Status: Acute Assessment & Plan: Patient tested positive for influenza 7 days ago. Patient was started on zinc and Xofluza. Has some cough, worse at night. O2 saturation 95 on room air. Coarse breath sounds and end expiratory wheezing heard on exam upon admission, these findings have improved. Patient requesting medicine for cough. (3) Hypertension Status: Chronic Assessment & Plan: At home, patient is on Cartia XT 120mg 1 tab daily, carvedilol 3.125mg bid, clonidine HCl 0.1mg bid for HTN. Carvedilol and diltiazim continued due to high bp here in hospital. Will continue to monitor. Qualifiers: Qualified Codes: I10 - Essential (primary) hypertension (4) Systolic murmur of aorta Status: Chronic Assessment & Plan: Unsure of date of last ECHO. Patient denies chest pain. Chest CR showed tortuous aorta. (5) Generalized anxiety disorder Status: Chronic Assessment & Plan: Patient takes half of alprazolam 0.5 mg at home for anxiety. (6) Prediabetes Status: Chronic (7) Osteoporosis Status: Chronic Qualifiers: Qualified Codes: M81.0 - Age-related osteoporosis without current pathological fracture (8) Basal cell carcinoma of skin of nose Assessment & Plan: Has been treated with liquid nitrogen but came back after. Scabbed over currently. (9) Hyperlipidemia Status: Chronic Assessment & Plan: Takes simvastatin 5mg 1 tab daily at home. This has been continued. Qualifiers: Qualified Codes: E78.5 - Hyperlipidemia, unspecified (10) Impaired hearing Status: Chronic Qualifiers: Qualified Codes: H91.90 - Unspecified hearing loss, unspecified ear DALE PORTILLO MD 09/16/222151: Supervisory-Addendum Brief Verification & Attestation Participated in pt care: history, MDM, physical Personally performed: exam, history, MDM, supervision of care Care discussed with: Medical Student Procedures: n/a I personally saw and examined patient and did my own history which confirmed that documented by the medical student. I directed the plan of care as documented. BAILEE CONNELLY Sep 16, 2022 09:36 DALE PORTILLO MD Sep 16, 2022 21:52
[2022-09-16] MEDS ORDERED: ALPRAZolam 0.5 MG (XANAX) TAB PO PRN (09:45)
[2022-09-16] MEDS ORDERED: CARV3.122 PO (09:46)
[2022-09-16] MEDS ORDERED: SIMV5TAB22 PO (09:46)
[2022-09-16] MEDS ORDERED: ALPR0.5T7 PO (09:46)
[2022-09-16] MEDS ORDERED: DILT-27 PO (09:46)
[2022-09-16] MEDS: dilTIAZem120 MG (CARDIZEM CD) CAP PO SCH (10:11)
--- NOTE | 2022-09-16 11:10 | Physical Therapy Evaluation ---
PT Evaluation-General Medical Diagnosis Admission Date Sep 15, 2022 at 12:52 Medical Diagnosis: AMS/UTI Onset Date: Sep 15, 2022 Therapy Diagnosis Therapy Diagnosis: debility/weakness Height/Weight Height (Feet): 4 Height (Inches): 10.00 Weight (Pounds): 130 Precautions Precautions/Isolations: Droplet Isolation, Fall Prevention Weight Bear Status Weight Bearing/Tolerated Left Lower Extremity: Left Weight Bearing/Tolerated Referral Physician: Pipo Reason for Referral: Evaluation/Treatment Medical History Pertinent Medical History: HTN Current History recent hospital stay in OSH due to UTI and flu A. ER secondary to continued wea kness Reviewed History: Yes Social History Home: Single Level Current Living Status: Other Family Entry Into Home: Ramp family assist / per daughter Prior Prior Level of Function SCALE: Activities may be completed with or without assistive devices. 8-Iqdcarsdwx-yqojejn completes the activity by him/herself with no assistance from a helper. 5-Set-up or Clean-up Assistance-helper sets up or cleans up; patient completes activity. [place] assists only prior to or following the activity. 4-Supervision or Touching Assistance-helper provides verbal cues and/or touching/steadying and/or contact guard assistance as patient completes activity. Assistance may be provided throughout the activity or intermittently. 3-Partial/Moderate Assistance-helper does LESS THAN HALF the effort. [place] lifts, holds or supports trunk or limbs, but provides less than half the effort. 2-Substantial/Maximal Assistance-helper does MORE THAN HALF the effort. [place] lifts or holds trunk or limbs and provides more than half the effort. 2-Jwzcyrjmn-zqowup does ALL the effort. Patient does none of the effort to complete the activity. Or, the assistance of 2 or more helpers is required for the patient to complete the activity. If activity was not attempted, code reason: 7-Patient Refused. 9-Not Applicable-not attempted and the patient did not perform the activity before the current illness, exacerbation or injury. 10-Not Attempted due to Environmental Limitations-(lack of equipment, weather restraints, etc.). 88-Not Attempted due to Medical Conditions or Safety Concerns. Bed Mobility: 3 Transfers (B,C,W/C): 4 Gait: 4 Indoor Mobility (Ambulation): Needed Some Help Stairs: Not Applicalbe Prior Devices Use: Walker family assist per daughter report PT Evaluation-Current Subjective Patient very [place]. Agrees to PT. Family present and very attentive. Objective Patient Orientation: Person, Time, Situation ROM/Strength ROM Lower Extremities bilateral LE WFL Strength Lower Extremities 3/5 grossly bilateral LE all planes Sensory Vision: Functional Hearing: Impaired Transfers Sit to Lying (QC): 3 Lying to Sitting/Side of Bed(Q: 3 Sit to Stand (QC): 4 Gait Mode of Locomotion: Walk Anticipated Mode of Locomotion: Walk Walk 10 feet (QC): 4 Walk 50 ft with 2 Turns(QC): 4 Walk 150 ft (QC): 4 Distance: 150' in room Gait Assistive Device: FWW Comments/Gait Description safe and functional with no deviation Balance Sitting Static: Normal Sitting Dynamic: Normal Standing Static: Good Standing Dynamic: Good Assessment/Needs 89 y.o. female, will benefit from skilled PT to address functional strength and mobility to improve current LOF. Per family, patient will return to home with family support upon dismissal from this facility. Rehab Potential: Fair PT Long-Term Goals Long-Term Goals PT Long-Term Goals Time Frame: Sep 27, 2022 Roll Left & Right (QC): 4 Sit to Lying (QC): 4 Lying-Sitting on Side/Bed(QC): 4 Sit to Stand (QC): 4 Chair/Ckn-mu-Isnfi Xfer(QC): 4 Toilet Transfer (QC): 4 Walk 10 feet (QC): 4 Walk 50ft with 2 Turns (QC): 4 Walk 150 ft (QC): 4 PT Plan Problem List Problem List: Activity Tolerance, Functional Strength, Safety, Balance, Gait, Transfer, Bed Mobility Treatment/Plan Treatment Plan: Continue Plan of Care Treatment Plan: Bed Mobility, Education, Functional Activity Nathen, Functional Strength, Gait, Safety, Therapeutic Exercise, Transfers Treatment Duration: Sep 27, 2022 Frequency: 6 times per week Estimated Hrs Per Day: .25 hour per day Patient and/or Family Agrees t: Yes Discharge Recommendations Therapy Discharge Recommendati: Home & Family (per family report) Time Time In: 1040 Time Out: 1055 DATE: Sep 16, 2022 Total Billed Treatment Time: 15 Total Billed Treatment 1 visit EVMod 15 min ALISSNO MCGHEE PT Sep 16, 2022 11:10
[2022-09-16] MEDS: ENOXAPARIN 40 MG/0.4 ML (LOVENOX) SYR SC SCH (14:29)
[2022-09-16] MEDS ORDERED: BENZ-36 PO (14:45)
[2022-09-16] MEDS ORDERED: D-MA500C PO (14:45)
[2022-09-16] MEDS ORDERED: ACET-2267 PO (14:45)
[2022-09-16] MEDS ORDERED: ACAI500C9 PO (14:45)
[2022-09-16] MEDS ORDERED: OMEG100032 PO (14:45)
[2022-09-16] MEDS ORDERED: CEPH500C PO (14:45)
[2022-09-16] MEDS ORDERED: DOCU-26 PO (14:45)
[2022-09-16] MEDS ORDERED: CHOL10007 PO (14:45)
[2022-09-16] MEDS ORDERED: MULT-1136 PO (14:45)
[2022-09-16] MEDS ORDERED: ASPI-1238 PO (14:45)
[2022-09-16] MEDS ORDERED: L GA1CAP2 PO (14:45)
[2022-09-16] MEDS ORDERED: ALEN70TA80 PO (14:45)
[2022-09-16] MEDS ORDERED: TMSL.4C PO (14:45)
[2022-09-16] MEDS ORDERED: ASCO-262 PO (14:45)
[2022-09-16] MEDS ORDERED: CRAN400C PO (14:45)
[2022-09-16] MEDS ORDERED: GING550C4 PO (14:45)
[2022-09-16] MEDS ORDERED: ZINC50TA51 PO (14:45)
[2022-09-16] MEDS ORDERED: POTA99TA17 PO (14:45)
[2022-09-16] MEDS ORDERED: BENZONATATE 100 MG (TESSALON) CAPSULE PO PRN (22:00)
[2022-09-17 03:16] VITALS: BP 170/80
[2022-09-17] MEDS: MEROPENEM 500 MG/NS 100 ML IVPB IV SCH ×6 (05:38→22:05)
[2022-09-17] MEDS: MULTIVIT W/MINERALS TAB (THERAGRAN M) PO SCH (05:38)
[2022-09-17] MEDS: CATHETER FLUSH 10 ML SYR IVP SCH ×3 (05:39→22:05)
[2022-09-17 05:56] LABS: HEMATOCRIT 40 % (35-52); HEMOGLOBIN 13.1 g/dL (11.5-16.0); MEAN CORPUSCULAR HEMOGLOBIN 30 pg (25-34); MEAN CORPUSCULAR HGB CONC 32 g/dL (32-36); MEAN CORPUSCULAR VOLUME 92 fL (80-99); MEAN PLATELET VOLUME 9.5 fL (9.0-12.2); PLATELET COUNT 379 10^3/uL (130-400); WHITE BLOOD COUNT 11.8 10^3/uL (4.3-11.0)
[2022-09-17 07:32] VITALS: BP 160/80
[2022-09-17] MEDS: dilTIAZem120 MG (CARDIZEM CD) CAP PO SCH (08:36)
[2022-09-17] MEDS: DOCUSATE SODIUM 100 MG (COLACE) CAP PO SCH (08:36)
--- NOTE | 2022-09-17 09:26 | Physical Therapy Daily Note ---
PT Daily Note-Current Subjective Pt found lying in bed upon entry. Agreed to PT. Does not rate or report any change in pain. Stated that she needed to go to the bathroom during gait training. Pt left /c nurse on toilet. Pain Numeric Pain Scale: 0-No Pain Section J - Health Conditions 1. Rarely or not at all 2. Occasionally 3. Frequently 4. Almost constantly 8. Unable to answer Pain Effect on Sleep: 1 Pain Interference with Therapy: 1 Pain Interference w/Day-to-Day: 1 Mental Status Patient Orientation: Normal For Age Transfers SCALE: Activities may be completed with or without assistive devices. 8-Mnygxknfxj-snypikx completes the activity by him/herself with no assistance f rom a helper. 5-Set-up or Clean-up Assistance-helper sets up or cleans up; patient completes activity. [place] assists only prior to or following the activity. 4-Supervision or Touching Assistance-helper provides verbal cues and/or touching/steadying and/or contact guard assistance as patient completes activity. Assistance may be provided throughout the activity or intermittently. 3-Partial/Moderate Assistance-helper does LESS THAN HALF the effort. [place] lifts, holds or supports trunk or limbs, but provides less than half the effort. 2-Substantial/Maximal Assistance-helper does MORE THAN HALF the effort. [place] lifts or holds trunk or limbs and provides more than half the effort. 5-Xvcnpahhy-dklgaf does ALL the effort. Patient does none of the effort to complete the activity. Or, the assistance of 2 or more helpers is required for the patient to complete the activity. If activity was not attempted, code reason: 7-Patient Refused. 9-Not Applicable-not attempted and the patient did not perform the activity before the current illness, exacerbation or injury. 10-Not Attempted due to Environmental Limitations-(lack of equipment, weather restraints, etc.). 88-Not Attempted due to Medical Conditions or Safety Concerns. Lying to Sitting/Side of Bed(Q: 3 Sit to Stand (QC): 6 Toilet Transfer (QC): 6 Pt MOD assist /c supine->sit trfs. Independent /c sit<->stand and toilet trfs. Weight Bearing Weight Bearing/Tolerated Left Lower Extremity: Left Weight Bearing/Tolerated Gait Training Does the Patient Walk?: Yes Distance: 80 Walk 10 feet (QC): 6 Walk 50 ft with 2 Turns(QC): 6 Gait Persons Needed: 1 Gait Assistive Device: FWW Pt independent /c gait training. Wheelchair Training Does the Pt Use a Wheelchair?: No Assessment Current Status: Good Progress, Fair Progress Pt tolerated exercises well /c no report of increase pain or discomfort. Continue to progress gait training and exercises as tolerated per POC to increase strength and functional ability. PT Chcf Goals Surgical Coordinator Goals PT Surgical Coordinator Goals Time Frame: Sep 27, 2022 Roll Left & Right (QC): 4 Sit to Lying (QC): 4 Lying-Sitting on Side/Bed(QC): 4 Sit to Stand (QC): 4 Chair/Imh-fj-Qylbu Xfer(QC): 4 Toilet Transfer (QC): 4 Walk 10 feet (QC): 4 Walk 50ft with 2 Turns (QC): 4 Walk 150 ft (QC): 4 PT Plan Treatment/Plan Treatment Plan: Continue Plan of Care Treatment Plan: Bed Mobility, Education, Functional Activity Nathen, Functional Strength, Gait, Safety, Therapeutic Exercise, Transfers Treatment Duration: Sep 27, 2022 Frequency: 6 times per week Estimated Hrs Per Day: .25 hour per day Patient and/or Family Agrees t: Yes Time Time In: 819 Time Out: 837 DATE: Sep 17, 2022 Total Billed Treatment Time: 18 Total Billed Treatment 1 visit GT 1x YESICA RECIO PTA Sep 17, 2022 09:26
[2022-09-17 11:11] VITALS: BP 156/70
[2022-09-17] MEDS: ENOXAPARIN 40 MG/0.4 ML (LOVENOX) SYR SC SCH (14:40)
[2022-09-17] MEDS ORDERED: MERO1VIA23 IV (14:47)
[2022-09-17 15:10] VITALS: BP 119/83
--- NOTE | 2022-09-17 16:24 | Progress Note ---
RADHA MARLEY 09/17/22 1624: Subjective Subjective/Events-last exam Patient doing well this morning. She is A&Ox3. Daughter states her confusion is much improved. She still has a cough. She has been working with PT and doing well. She is eating, drinking, using the bathroom without issue. Tolerating treatment well. Review of Systems General: No Chills, No Fatigue Pulmonary: No Dyspnea; Cough Cardiovascular: No: Chest Pain, Palpitations Neurological: Confusion (improving, A&Ox3) Focused Exam Time of Focused Exam: 08:05 Respiratory: No Accessory Muscle Use, No Respiratory Distress Cardiovascular: Regular Rate, Rhythm, Systolic Murmur Skin: normal color, warm/dry Objective Exam Last Set of Vital Signs Vital Signs Date Time Temp Pulse Resp B/P (MAP) Pulse Ox O2 Delivery O2 Flow Rate FiO2 09/17/22 15:10 36.4 65 18 119/83 (95) 93 Room Air Capillary Refill : Less Than 3 Seconds I&O Intake and Output 09/17/22 00:00 Intake Total 1130 ml Output Total 2 ml Balance 1128 ml Intake Oral 1130 ml Output Urine Total 2 ml # Voids 4 # Bowel Movements 2 General: Alert, Oriented X3, Cooperative, No Acute Distress Lungs: Other (no respiratory distress, cough) Heart: Regular Rate, Normal S1, Normal S2, Other (systolic murmur) Extremities: No Edema Skin: No Significant Lesion Neuro: Normal Speech Psych/Mental Status: Mood NL Results/Procedures Lab Laboratory Tests 09/17/22 04:59: White Blood Count 11.8H, Red Blood Count 4.41, Hemoglobin 13.1, Hematocrit 40, Mean Corpuscular Volume 92, Mean Corpuscular Hemoglobin 30, Mean Corpuscular Hemoglobin Concent 32, Red Cell Distribution Width 13.6, Platelet Count 379, Mean Platelet Volume 9.5 Microbiology 09/15/22 Urine Culture - Preliminary, Resulted Pseudomonas aeruginosa Radiology Chest x-ray: negative chest. No infiltrate, pleural fluid. Heart mildly enlarg ed. Tortuous aorta. Assessment/Plan Assessment/Plan Admission Status: Inpatient Order (span 2 midnights) Assessment & Plan Diet: general DVT prophylaxis: Lovenox Code status: DNR Dispo: inpatient, pending sensitivities (1) UTI (urinary tract infection) Status: Acute Assessment & Plan: Patient has been on antibiotics for the past 1 week for UTI. Cultures and sensitivity done in [place] growing Morganella morganii, sensitive only to Meropenem and gentamycin. Cultures repeated here likely growing Pseudomonas. Sensitivities are pending. Patient is on Meropenem currently. Patient would like to go home as soon as possible, we are waiting on sensitivities. Once sensitivities are back will try to set up outpatient antibiotics. Social work is involved in making this happen. Patient has children who are involved and feel they can help her at home. She lives alone but one daughter lives next door and the other has stayed with her since she got sick. Qualifiers: Qualified Codes: N39.0 - Urinary tract infection, site not specified; R31.9 - Hematuria, unspecified (2) Influenza A Status: Acute Assessment & Plan: Patient tested positive for influenza . Patient was started on zinc and Xofluza. Has some cough, worse at night. Denies SOB, chest pain. Coarse breath sounds and end expiratory wheezing heard on exam upon admission, these findings have improved. Patient requesting medicine for cough. O2 saturation has been between 92 and 94 since 09/15/2022. Will order incentive spirometry. (3) Hypertension Status: Chronic Assessment & Plan: At home, patient is on Cartia XT 120mg 1 tab daily, carvedilol 3.125mg bid, clonidine HCl 0.1mg bid for HTN. Carvedilol and diltiazim continued due to high bp here in hospital. Will continue to monitor. 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 Chest CR showed tortuous aorta. ECHO completed 09/16/2022 shows EF 50-55%, grade 1 diastolic dysfunction, mildly calcified and mildy fibrotic mitral valve, pulmonary artery systolic pressure 20-25 mmHg. (5) Generalized anxiety disorder Status: Chronic Assessment & Plan: Patient takes half of alprazolam 0.5 mg at home for anxiety. (6) Prediabetes Status: Chronic (7) Osteoporosis Status: Chronic Qualifiers: Qualified Codes: M81.0 - Age-related osteoporosis without current pathological fracture (8) Basal cell carcinoma of skin of nose Assessment & Plan: Has been treated with liquid nitrogen but came back after. Scabbed over currently. (9) Hyperlipidemia Status: Chronic Assessment & Plan: Takes simvastatin 5mg 1 tab daily at home. This has been continued. Qualifiers: Qualified Codes: E78.5 - Hyperlipidemia, unspecified (10) Impaired hearing Status: Chronic Qualifiers: Qualified Codes: H91.90 - Unspecified hearing loss, unspecified ear DALE PORTILLO MD 09/17/227: Supervisory-Addendum Brief Verification & Attestation Participated in pt care: history, MDM, physical Personally performed: exam, history, MDM, supervision of care Care discussed with: Medical Student Procedures: n/a Pt seen and examined by me along with OMS4 Radha Marley, I did my own history as well which confirms that documented by the medical student. I directed the plan of care as documented. RADHA MARLEY Sep 17, 2022 16:24 DALE PORTILLO MD Sep 17, 2022 19:07
[2022-09-17] MEDS ORDERED: OMEGA 3 (FISH OIL) 1000 MG CAP PO SCH (18:00)
[2022-09-17] MEDS ORDERED: TAMSULOSIN 0.4 MG (FLOMAX) CAP PO SCH (18:00)
[2022-09-17 19:17] VITALS: BP 167/76
[2022-09-17] MEDS ORDERED: AtorvaSTATin TABLET 10 MG TABLET PO SCH (21:00)
[2022-09-17] MEDS ORDERED: MELATONIN 3 MG TABLET PO SCH (21:00)
[2022-09-17] MEDS ORDERED: LOPERAMIDE 2 MG (IMODIUM) TABLET PO PRN (22:15)
[2022-09-18] VITALS: BP 145/72
[2022-09-18] MEDS: MEROPENEM 500 MG/NS 100 ML IVPB IV SCH ×2 (05:12)
[2022-09-18] MEDS: ACETAMINOPHEN 325 MG TABLET PO PRN ×2 (05:12→09:37)
[2022-09-18] MEDS: MULTIVIT W/MINERALS TAB (THERAGRAN M) PO SCH (05:12)
[2022-09-18] MEDS: CATHETER FLUSH 10 ML SYR IVP SCH ×2 (05:13→13:21)
[2022-09-18 06:01] LABS: HEMATOCRIT 40 % (35-52); MEAN CORPUSCULAR HEMOGLOBIN 29 pg (25-34); MEAN CORPUSCULAR HGB CONC 32 g/dL (32-36); MEAN CORPUSCULAR VOLUME 91 fL (80-99); MEAN PLATELET VOLUME 9.6 fL (9.0-12.2); PLATELET COUNT 395 10^3/uL (130-400)
[2022-09-18 06:12] LABS: POTASSIUM 4.2 MMOL/L (3.6-5.0)
[2022-09-18 06:13] LABS: CALCIUM 11.1 MG/DL (8.5-10.1)
[2022-09-18 06:18] LABS: CREATININE SERUM 0.74 MG/DL (0.60-1.30)
[2022-09-18 06:20] LABS: MAGNESIUM 2.1 MG/DL (1.6-2.4)
[2022-09-18 07:34] VITALS: BP 144/65
[2022-09-18] MEDS: DOCUSATE SODIUM 100 MG (COLACE) CAP PO SCH (08:08)
[2022-09-18] MEDS: dilTIAZem120 MG (CARDIZEM CD) CAP PO SCH (08:21)
[2022-09-18 11:16] VITALS: BP 134/60
--- NOTE | 2022-09-18 11:21 | Physical Therapy Progress Note ---
Therapy Progress Note Pt sleeping after being given Xanax recently. Pt is preparing to have PICC line put in soon. CLOTH BOLT BANDER will see pt in afternoon to check status. YESICA RECIO CLOTH BOLT BANDER Sep 18, 2022 11:21
--- NOTE | 2022-09-18 13:05 | D/C HH Face to Face Order ---
D/C Face to Face Orders Instructions for Patient Patient Instructions/FollowUp: Follow up with primary doctor within a week. Physician to follow Patient: [facility] Discharge Diet for Home: Regular Diet Patient Data-Allergies,Ht & Wt Patient Allergies: Coded Allergies: shrimp (Verified Allergy, Unknown, 09/12/22) Uncoded Allergies: IVP DYE (Allergy, Unknown, 09/12/22) Height (Feet): 4 Height (Inches): 10.00 Weight (Pounds): 130 Home Health Need/Face to Face Date of Face to Face: Sep 18, 2022 Clinical Findings: Generalized weakness and fatigue I have seen Pt [id number]: Yes Discharged To: Home Diagnosis/Conditions: Urinary tract infection with resistant bacteria Hypertension Hyperlipidemia Debility Patient is Homebound due to: [place] fall risk due to instabilty Homebound Status Due to the above stated illness, injury or surgical procedure (medical condition or diagnosis) and associated clinical findings, the patient is homebound because of his/her inability to leave home except with aid of a supportive device and/or person AND leaving the home requires a considerable and taxing effort or is medically contraindicated. Pt req the following assistanc: Aid of another person Home Health Nursing Orders Home Health Services Order: Nursing Services, Physical Therapy-Evaluate & Treat Home Health Infusion Therapy Line Start Date: Sep 18, 2022 Certify Stmt I certify that this patient is under my care and that I, a nurse practitioner or a physician; a magistrate assistant working with me, had a face to face encounter that - meets the physician face to face encounter requirements with this patient as dated. DALE PORTILLO MD Sep 18, 2022 13:05
[2022-09-18] MEDS: ENOXAPARIN 40 MG/0.4 ML (LOVENOX) SYR SC SCH (13:20)
[2022-09-18] MEDS ORDERED: MEROPENEM 1,000 MG/NS 100 ML IVPB IV SCH ×2 (14:00)
[2022-09-18] MEDS ORDERED: VANC125C5 PO (14:23)
[2022-09-18 14:46] VITALS: BP 134/60
--- NOTE | 2022-09-18 17:25 | Discharge Summary ---
BAILEE CONNELLY 09/18/22 1718: Discharge Summary Hospital Course Problems Reviewed?: Yes Problems/Diagnosis: (1) UTI (urinary tract infection) Status: Acute Assessment & Plan: Patient has been on antibiotics for the past 1 week for UTI. Cultures and sensitivity done in [place] growing Morganella morganii, sensitive only to Meropenem and gentamycin. Cultures repeated here likely growing Pseudomonas. Sensitivities are pending. Patient is on Meropenem currently. Patient would like to go home as soon as possible, we are waiting on sensitivities. Social work successful in getting home IV antibiotics set up. Patient's daughters will have education today so that they can administer the antibiotics at home. Home health will begin visiting on Thursday. Patient has children who are involved and feel they can help her at home. She lives alone but has two daughters who plan to stay with her until she recovers. Qualifiers: Qualified Codes: N39.0 - Urinary tract infection, site not specified; R31.9 - Hematuria, unspecified (2) Influenza A Status: Acute Assessment & Plan: Patient tested positive for influenza . Patient was started on zinc and Xofluza. Has some cough, worse at night. Denies SOB, chest pain. Coarse breath sounds and end expiratory wheezing heard on exam upon admission, these findings have improved. Patient requesting medicine for cough. O2 saturation has been between 92 and 94 since 09/15/2022. Will order incentive spirometry. Symptoms much improved. (3) C. difficile diarrhea Status: Acute Assessment & Plan: Patient and daughter reported 5 episodes of diarrhea 09/17/2022. Stool samples obtained. Loperamide ordered. Stool sample positive for c. diff. Patient given oral vancomycin. Discussed this with the patient and her daughters and will discharge home to care of daughters with antibiotics. (4) Hypertension Status: Chronic Assessment & Plan: At home, patient is on Cartia XT 120mg 1 tab daily, carvedilol 3.125mg bid, clonidine HCl 0.1mg bid for HTN. Carvedilol and diltiazim continued due to high bp here in hospital. Qualifiers: Qualified Codes: I10 - Essential (primary) hypertension (5) Systolic murmur of aorta Status: Chronic Assessment & Plan: Patient denies chest pain. Chest CR showed tortuous aorta. ECHO completed 09/16/2022 shows EF 50-55%, grade 1 diastolic dysfunction, mildly calcified and mildy fibrotic mitral valve, pulmonary artery systolic pressure 20-25 mmHg. (6) Generalized anxiety disorder Status: Chronic Assessment & Plan: Patient takes half of alprazolam 0.5 mg at home for anxiety. (7) Prediabetes Status: Chronic (8) Osteoporosis Status: Chronic Qualifiers: Qualified Codes: M81.0 - Age-related osteoporosis without current pathological fracture (9) Basal cell carcinoma of skin of nose Assessment & Plan: Has been treated with liquid nitrogen but came back after. Scabbed over currently. Follow up with PCP outpatient for this problem. (10) Hyperlipidemia Status: Chronic Assessment & Plan: Takes simvastatin 5mg 1 tab daily at home. This has been continued. Qualifiers: Qualified Codes: E78.5 - Hyperlipidemia, unspecified (11) Impaired hearing Status: Chronic Qualifiers: Qualified Codes: H91.90 - Unspecified hearing loss, unspecified ear Hospital Course Date of Admission: Sep 15, 2022 at 12:52 Admission Diagnosis : Family Physician/Provider: Franck Medina MD Date of Discharge: 09/18/22 Discharge Diagnosis: [UTI, Influenza A, C. diff diarrhea] Hospital Course: [Patient presented to ER with weakness and incontinence. She had been antibiotics for one week to treat a UTI but was not getting better. Patient was admitted and UA with culture was completed. Records from previous hospital visits were obtained and antibiotics were started based on those sensitivities. Patient continued to improve daily. Patient developed diarrhea 09/17/2022. Samples were taken and were positive for c. diff. Patient feels strongly about going home and has support at home. She is stable. Patient will be discharged home to the care of her daughters and with the help of home health.] Labs and Pending Lab Test: Laboratory Tests 09/18/22 05:12: White Blood Count 14.0H, Red Blood Count 4.43, Hemoglobin 13.0, Hematocrit 40, Mean Corpuscular Volume 91, Mean Corpuscular Hemoglobin 29, Mean Corpuscular Hemoglobin Concent 32, Red Cell Distribution Width 13.4, Platelet Count 395, Mean Platelet Volume 9.6, Sodium Level 134L, Potassium Level 4.2, Chloride Level 102, Carbon Dioxide Level 24, Anion Gap 8, Blood Urea Nitrogen 16, Creatinine 0.74, Estimat Glomerular Filtration Rate 77, BUN/Creatinine Ratio 22, Glucose Level 112H, Calcium Level 11.1H, Magnesium Level 2.1 Microbiology 09/17/22 C. difficile GDH Antigen & Toxins - Final, Complete 09/15/22 Urine Culture - Preliminary, Resulted Pseudomonas aeruginosa Home Meds Active Vancomycin HCl 125 Mg Capsule 125 Mg PO QID Meropenem 1 Gram Vial 1 Gm IV Q12H 4 Days Reported Tylenol Extra Strength (Acetaminophen) 500 Mg Tablet 500-1,000 Mg PO BID Zinc (Zinc Amino Acid Chelate) 50 Mg Tablet 50 Mg PO BID Cranberry 400 Mg Capsule 400 Mg PO BID Potassium Gluconate 595 MG (Potassium Gluconate) 595 Mg (99 Mg) Tablet 99 Mg PO BID Acai (Acai Soriano Extract) 500 Mg Capsule 500 Mg PO BID Azo D-Mannose (D-Mannose) 500 Mg Capsule 500 Mg PO BID Vitamin C (Ascorbate Calcium) 500 Mg Tablet 500 Mg PO BID Aspirin EC (Aspirin) 81 Mg Tablet.dr 81 Mg PO 1800 Fish Oil 1,000 mg Softgel ([place]-3/Dha/Epa/Fish Oil) 1,000 Mg (120 Mg-180 Mg) Capsule 1,000 Mg PO 1800 Vitamin D3 (Cholecalciferol (Vitamin D3)) 25 Mcg (1000 Unit) Capsule 25 Mcg PO 1800 Stool Softener (Docusate Sodium) 100 Mg Capsule 100 Mg PO DAILY Reactful Capsule (l [place]asseri/B Bifidum/B Longum) 1.5 Billion Cell Capsule 1 Each PO DAILY Rachel Root 550 Mg Capsule 550 Mg PO DAILY Multivitamin 1 Each Tablet 1 Each PO DAILY Flomax (Tamsulosin HCl) 0.4 Mg Cap 0.4 Mg PO 1800 Alendronate Sodium 70 Mg Tablet 70 Mg PO FRI Benzonatate 100 Mg Capsule 100 Mg PO TID PRN Carvedilol 3.125 Mg Tablet 3.125 Mg PO DAILY Simvastatin 5 Mg Tablet 5 Mg PO HS Alprazolam 0.5 Mg Tablet 0.5 Mg PO BID PRN Diltiazem 24Hr ER (Diltiazem HCl) 120 Mg Cap.er.24h 120 Mg PO DAILY Assessment/Pt DC Instructions Finish all courses of antibiotics. Contact your physician with questions. If patient develops worsening of her conditions, dehydration, lethargy, fever, blood in stools please contact your physician. Discharge Diet: ADA Diet Discharge Physical Examination Allergies: Coded Allergies: shrimp (Verified Allergy, Unknown, 09/12/22) Uncoded Allergies: IVP DYE (Allergy, Unknown, 09/12/22) General Appearance: No Apparent Distress, WD/WN Respiratory: Lungs Clear, Normal Breath Sounds, No Accessory Muscle Use, No Respiratory Distress Cardiovascular: Regular Rate, Rhythm, No Edema, Systolic Murmur Gastrointestinal: Normal Bowel Sounds, Non Tender, Distended Skin: Normal Color, Warm/Dry Neurologic/Psychiatric: Alert, Oriented x3, Normal Mood/Affect Discharge Summary Date of Admission Sep 15, 2022 at 12:52 Date of Discharge Sep 18, 2022 at 14:47 Discharge Date: Sep 18, 2022 DALE PORTILLO MD 09/18/22 1825: Discharge Summary Discharge Physical Examination Allergies: Coded Allergies: shrimp (Verified Allergy, Unknown, 09/12/22) Uncoded Allergies: IVP DYE (Allergy, Unknown, 09/12/22) Supervisory-Addendum Brief Verification & Attestation Participated in pt care: history, MDM, physical Personally performed: exam, history, MDM, supervision of care Care discussed with: Medical Student Procedures: n/a I did my own history and exam which confirmed that documented by the medical student. I directed the plan of care as documented by the medical student. One correction- loperamide was stopped after positive C diff result noted. Nursing reported only 2 (non watery, just loose) stools today, and family wanted to proceed with discharge. BAILEE CONNELLY Sep 18, 2022 17:18 DALE PORTILLO MD Sep 18, 2022 18:25
[2022-09-18] MEDS ORDERED: VANCOMYCIN 125 MG CAPSULE PO SCH (18:00)
[2022-09-19] MEDS ORDERED: MEROPENEM 1,000 MG/NS 100 ML IVPB IV SCH ×2 (09:00)
== END 2022-09-18 14:47 | disposition home health service (06) | DRG 690 ==
LOC: EDUNIT# 10:56 → ER 10:58 → 4TH 12:52
PROVIDERS: ADMIT Family Medicine; ATTEND Family Medicine
DX: N39.0 Urinary tract infection, site not specified (principal); A04.72 Enterocolitis due to Clostridium difficile, not specified as recurrent; B96.5 Pseudomonas (aeruginosa) (mallei) (pseudomallei) as the cause of diseases classified elsewhere; J10.1 Influenza due to other identified influenza virus with other respiratory manifestations; I10 Essential (primary) hypertension; Z66 Do not resuscitate; R01.1 Cardiac murmur, unspecified; F41.1 Generalized anxiety disorder; R73.03 Prediabetes; M81.0 Age-related osteoporosis without current pathological fracture; C44.311 Basal cell carcinoma of skin of nose; E78.5 Hyperlipidemia, unspecified; H91.90 Unspecified hearing loss, unspecified ear; Z79.899 Other long term (current) drug therapy
CPT/HCPCS: 36410; 36415; 71045; 76937; 80048; 80053; 81000; 83735; 85025; 85027; 85610; 87077; 87088; 87186; 87324; 87449; 93306; 94664; 94760